=== PATIENT | female | born 1940 | race Caucasian/White ===

== ENCOUNTER 2023-05-22 16:51 | Inpatient (IN) | payer MEDICARE, OTHER ==
[~2023-05-22] VITALS: Ht 172.7 cm; Wt 61.2 kg
[2023-05-22 17:24] LABS: BASOPHILS % (AUTO) 0.1 % (0.0-2.0); EOSINOPHILS % (AUTO) 0.1 % (0.0-6.0); HEMATOCRIT 39 % (33-45); HEMOGLOBIN 12.5 g/dL (11.5-14.8); LYMPHOCYTES # (AUTO) 0.6 K/uL (0.8-4.8); LYMPHOCYTES % (AUTO) 2.7 % (20.0-44.0); MEAN CORPUSCULAR HEMOGLOBIN 30 PG (26.0-33.0); MEAN CORPUSCULAR HGB CONC 32 g/dl (31.0-36.0); MEAN CORPUSCULAR VOLUME 93 fL (82-100); MONOCYTES # (AUTO) 2.2 K/uL (0.1-1.30); MONOCYTES % (AUTO) 9.6 % (2.0-12.0); NEUTROPHILS # (AUTO) 19.9 K/uL (1.8-8.9); NEUTROPHILS % (AUTO) 87.5 % (43.0-81.0); PLATELET COUNT (AUTO) 279 K/uL (150-450); RED BLOOD CELL COUNT(AUTO) 4.18 MIL/uL (4.0-5.2); RED CELL DISTRIBUTION WIDTH 14.8 % (11.5-15.0); WHITE BLOOD COUNT (AUTO) 22.8 K/uL (4.3-11.0)
[2023-05-22 17:25] LABS: ABG BASE EXCESS -3.1 mmol/L; ABG OXYGEN SATURATION 94.3 % (92.0-98.5); ABG PCO2 37.7 mmHg (35.0-45.0); ABG PH 7.377 (7.350-7.450); ABG PO2 75.5 mmHg (75.0-100.0); ABG TOTAL HEMOGLOBIN 13.5 G/dL (12.0-16.0); COHb 0.2 % (0.5-1.5); MetHb 0.4 % (0.0-1.5); O2Hb 93.7 % (94.0-97.0); SITE, ABG Right Radial; VENT MODE, BG 2 LPM NC
[2023-05-22] MEDS: AZITHROMYCIN 500 MG in IV D5W 250 ML IV ONE (17:30)
[2023-05-22 17:36] LABS: CALCIUM, SERUM 9.5 mg/dL (8.5-10.1); CARBON DIOXIDE 27 mmol/L (21-32); CHLORIDE 100 mmol/L (98-107); CREATININE 1.2 mg/dL (0.6-1.3); GLUCOSE 163 mg/dL (74-106); POTASSIUM 3.5 mmol/L (3.5-5.1); SODIUM SERUM 136 mmol/L (136-145); UREA NITROGEN, BLOOD 20 mg/dL (7-18)
[2023-05-22] MEDS ORDERED: BISA10SU11 RC (17:39)
[2023-05-22] MEDS ORDERED: MAGN400O6 PO (17:39)
[2023-05-22] MEDS ORDERED: CRAN425C6 PO (17:39)
[2023-05-22] MEDS ORDERED: ASCO500T21 PO (17:39)
[2023-05-22] MEDS ORDERED: AMIN30LI2 PO (17:39)
[2023-05-22] MEDS ORDERED: MULT-225 PO (17:39)
[2023-05-22] MEDS ORDERED: ZINC1CAP2 PO (17:39)
[2023-05-22] MEDS ORDERED: DOCU100T2 PO (17:39)
[2023-05-22] MEDS ORDERED: ACET-868 PO (17:39)
[2023-05-22] MEDS ORDERED: LACT10SO29 PO (17:39)
[2023-05-22] MEDS ORDERED: ATOR40TA PO (17:39)
[2023-05-22] MEDS ORDERED: NA P133E RC (17:39)
[2023-05-22] MEDS ORDERED: OMEP20CA15 PO (17:39)
[2023-05-22 17:47] LABS: ALANINE AMINOTRANSFERASE 16 U/L (12-78); ALBUMIN 3.1 g/dL (3.4-5.0); ALKALINE PHOSPHATASE 124 U/L (46-116); ASPARTATE AMINOTRANSFERASE 21 U/L (15-37); BILIRUBIN,DIRECT 0.2 mg/dL (0.0-0.2); BILIRUBIN,TOTAL 0.7 mg/dL (0.2-1.0); NT-PRO BNP 644 pg/mL (0-125); TOTAL PROTEIN, SERUM 8.5 g/dL (6.4-8.2)
[2023-05-22 18:12] LABS: BAND % (MANUAL) 4 % (0.0-5.0); LYMPHOCYTES % (MANUAL) 2 % (16-48); MONOCYTES % (MANUAL) 6 % (0-11.0); NEUTROPHILS % (MANUAL) 88 (42-76); PLATELET ESTIMATE ADEQUATE
[2023-05-22] MEDS: PIPERACILLIN /TAZOBACTAM 3.375 G in IV D5W 50 ML IV ONE (18:19)
[2023-05-22] MEDS ORDERED: Z GUARD REMEDY 4 OZ OINT TP PRN (18:30)
[2023-05-22] MEDS ORDERED: ONDANSETRON HCL/PF 4 MG/2 ML VIAL IVP PRN (18:30)
[2023-05-22] MEDS ORDERED: MAGNESIUM HYDROXIDE 30 ML UDC PO PRN (18:30)
[2023-05-22] MEDS ORDERED: ACETAMINOPHEN 325 MG TABLET PO PRN (18:30)
[2023-05-22] MEDS ORDERED: MAG HYDROX/AL HYDROX/SIMETH 30 ML UDC PO PRN (18:30)
[2023-05-22] MEDS ORDERED: hydrALAZINE HCL IV 20 MG VIAL ONE (19:57)
[2023-05-22] MEDS ORDERED: ASPIRIN 325 MG TABLET ONE (19:57)
[2023-05-22] MEDS: ASPIRIN 325 MG TABLET PO ONE (20:19)
[2023-05-22] MEDS: hydrALAZINE HCL IV 20 MG VIAL IV PRN (20:26)
[2023-05-22] MEDS ORDERED: ASPIRIN 300 MG/SUPP.RECT RC ONE (21:07)
[2023-05-22] MEDS: VANCOMYCIN 1 GM in IV D5W 250 ML IV ONE (21:15)
[2023-05-22] MEDS: ASPIRIN 300 MG/SUPP.RECT RC PRN (21:17)
[2023-05-22] MEDS: IV NS 0.9% 1,000 ML IV PRN (22:45)
[2023-05-22] MEDS: ENOXAPARIN SODIUM 40 MG/0.4 ML DISP.SYRIN SQ SCH (22:47)
[2023-05-22] MEDS ORDERED: CEFEPIME 1 GM VIAL ONE (22:56)
[2023-05-22] MEDS: CEFEPIME 1 GM in IV D5W 50 ML IV SCH (23:13)
[2023-05-23 06:52] LABS: BASOPHILS # (AUTO) 0.1 K/uL (0.0-0.2); BASOPHILS % (AUTO) 0.2 % (0.0-2.0); EOSINOPHILS % (AUTO) 0.2 % (0.0-6.0); HEMATOCRIT 37 % (33-45); HEMOGLOBIN 11.9 g/dL (11.5-14.8); LYMPHOCYTES % (AUTO) 7.5 % (20.0-44.0); MEAN CORPUSCULAR HEMOGLOBIN 31 PG (26.0-33.0); MEAN CORPUSCULAR HGB CONC 33 g/dl (31.0-36.0); MEAN CORPUSCULAR VOLUME 94 fL (82-100); MONOCYTES # (AUTO) 2.2 K/uL (0.1-1.30); MONOCYTES % (AUTO) 8.4 % (2.0-12.0); NEUTROPHILS # (AUTO) 22.3 K/uL (1.8-8.9); NEUTROPHILS % (AUTO) 83.7 % (43.0-81.0); PLATELET COUNT (AUTO) 244 K/uL (150-450); RED CELL DISTRIBUTION WIDTH 14.6 % (11.5-15.0); WHITE BLOOD COUNT (AUTO) 26.6 K/uL (4.3-11.0)
[2023-05-23 07:20] LABS: CALCIUM, SERUM 9.3 mg/dL (8.5-10.1); POTASSIUM 3.5 mmol/L (3.5-5.1)
[2023-05-23 07:31] LABS: CREATININE 1.3 mg/dL (0.6-1.3); PHOSPHORUS 2.8 mg/dL (2.5-4.9)
[2023-05-23 08:00] VITALS: BP 119/84; TEMP 96.3; O2SAT 99
[2023-05-23] MEDS: ASPIRIN 81 MG TAB.CHEW PO SCH (08:23)
[2023-05-23] MEDS ORDERED: BISACODYL SUPP (10 MG) 10 MG/SUPP.RECT SUPP.RECT RC PRN (11:30)
[2023-05-23] MEDS ORDERED: NA PHOS,M-B/NA PHOS,DI-BA 1 EA ENEMA RC PRN (11:30)
[2023-05-23 12:00] VITALS: BP 105/78; TEMP 97.1; O2SAT 96
[2023-05-23 16:00] VITALS: BP 112/65; TEMP 97.3; O2SAT 96
[2023-05-23 20:00] VITALS: BP 124/53; TEMP 99; O2SAT 96
[2023-05-23] MEDS: VANCOMYCIN 1 GM in IV D5W 250ml IV SCH (20:23)
[2023-05-24] VITALS: BP 142/62; TEMP 97.7; O2SAT 96
[2023-05-24 04:00] VITALS: BP 148/62; TEMP 98.2; O2SAT 95
[2023-05-24 08:00] VITALS: BP 139/6; TEMP 97.7; O2SAT 99
[2023-05-24] MEDS: DOCUSATE SODIUM 100 MG CAPSULE PO SCH (08:03)
[2023-05-24] MEDS: PANTOPRAZOLE 40 MG TABLET.DR PO SCH (08:03)
[2023-05-24 14:17] LABS: CALCIUM, SERUM 8.9 mg/dL (8.5-10.1)
[2023-05-24 14:22] LABS: POTASSIUM 2.8 mmol/L (3.5-5.1)
[2023-05-24 16:00] VITALS: BP 150/72; TEMP 97.3; O2SAT 98
[2023-05-24] MEDS: POTASSIUM CHLORIDE 20 MEQ POWDER PACKET PO ONE (16:49)
[2023-05-24 17:14] LABS: APPEARANCE,URINE CLEAR (CLEAR); BILIRUBIN,URINE NEGATIVE (NEGATIVE); BLOOD, URINE 2+ Ery/uL (NEGATIVE); COLOR,URINE YELLOW (YELLOW); KETONES,URINE NEGATIVE (NEGATIVE); LEUKOCYTE ESTERASE ,URINE 1+ (NEGATIVE); NITRITE, URINE NEGATIVE (NEGATIVE); PROTEIN,URINE 1+ mg/dl (NEGATIVE); UGLUCOSE NEGATIVE (NEGATIVE); UROBILINOGEN,URINE 0.2 EU/dL (0.2)
[2023-05-24 17:41] LABS: ADD URINE CULTURE YES; BACTERIA,URINE 1+ /HPF (None Seen); RBC,URINE 21-50 /HPF (0-2); SQUAMOUS EPITHELIAL CELL,UR 0-2 /HPF (None Seen)
[2023-05-24 17:45] LABS: EOSINOPHIL,URINE RARE
[2023-05-24 17:54] LABS: CREATININE, URINE 37.8 MG/DL (30.0-125.0); URINE TOTAL PROTEIN 79.4 mg/dL (0-11.9)
[2023-05-24 20:00] VITALS: BP 134/102; TEMP 97.6; O2SAT 98
[2023-05-24] MEDS: MUPIROCIN OINT 2% 22 GM TUBE NS SCH (20:13)
[2023-05-25 05:28] VITALS: BP 151/89; TEMP 97.6; O2SAT 98
[2023-05-25 08:00] VITALS: BP 149/94
[2023-05-25] MEDS ORDERED: POTASSIUM CHLORIDE 20 MEQ POWDER PACKET PO ONE (09:00)
[2023-05-25 09:18] LABS: BASOPHILS # (AUTO) 0.1 K/uL (0.0-0.2); BASOPHILS % (AUTO) 0.6 % (0.0-2.0); EOSINOPHILS # (AUTO) 0.4 K/uL (0.0-0.7); EOSINOPHILS % (AUTO) 4.4 % (0.0-6.0); HEMATOCRIT 36 % (33-45); HEMOGLOBIN 12.2 g/dL (11.5-14.8); LYMPHOCYTES # (AUTO) 1.7 K/uL (0.8-4.8); LYMPHOCYTES % (AUTO) 18.2 % (20.0-44.0); MEAN CORPUSCULAR HEMOGLOBIN 31 PG (26.0-33.0); MEAN CORPUSCULAR HGB CONC 34 g/dl (31.0-36.0); MEAN CORPUSCULAR VOLUME 92 fL (82-100); MONOCYTES # (AUTO) 0.6 K/uL (0.1-1.30); MONOCYTES % (AUTO) 6.6 % (2.0-12.0); NEUTROPHILS # (AUTO) 6.6 K/uL (1.8-8.9); NEUTROPHILS % (AUTO) 70.2 % (43.0-81.0); PLATELET COUNT (AUTO) 267 K/uL (150-450); RED BLOOD CELL COUNT(AUTO) 3.94 MIL/uL (4.0-5.2); RED CELL DISTRIBUTION WIDTH 14.5 % (11.5-15.0); WHITE BLOOD COUNT (AUTO) 9.4 K/uL (4.3-11.0)
[2023-05-25 09:33] LABS: CALCIUM, SERUM 9.1 mg/dL (8.5-10.1); CARBON DIOXIDE 25 mmol/L (21-32); CHLORIDE 104 mmol/L (98-107); GLUCOSE 89 mg/dL (74-106); PHOSPHORUS 1.9 mg/dL (2.5-4.9); POTASSIUM 3.7 mmol/L (3.5-5.1); SODIUM SERUM 136 mmol/L (136-145); UREA NITROGEN, BLOOD 9 mg/dL (7-18)
[2023-05-25 16:00] VITALS: BP 160/62; TEMP 97.4; O2SAT 97
[2023-05-25] MEDS: K PHOS NEUTRAL 250 MG TABLET PO ONE (16:20)
[2023-05-25 20:00] VITALS: BP 97/72; TEMP 97.6; O2SAT 97
[2023-05-25 20:10] LABS: CALCIUM, SERUM 9.1 mg/dL (8.5-10.1); CARBON DIOXIDE 26 mmol/L (21-32); CHLORIDE 103 mmol/L (98-107); CREATININE 0.9 mg/dL (0.6-1.3); GLUCOSE 104 mg/dL (74-106); POTASSIUM 3.6 mmol/L (3.5-5.1); SODIUM SERUM 136 mmol/L (136-145); UREA NITROGEN, BLOOD 11 mg/dL (7-18)
[2023-05-26 04:00] VITALS: BP 150/86; TEMP 98; O2SAT 95
[2023-05-26 06:58] LABS: BASOPHILS # (AUTO) 0.1 K/uL (0.0-0.2); BASOPHILS % (AUTO) 0.6 % (0.0-2.0); EOSINOPHILS # (AUTO) 0.3 K/uL (0.0-0.7); EOSINOPHILS % (AUTO) 3.7 % (0.0-6.0); HEMATOCRIT 40 % (33-45); HEMOGLOBIN 12.8 g/dL (11.5-14.8); LYMPHOCYTES # (AUTO) 1.9 K/uL (0.8-4.8); LYMPHOCYTES % (AUTO) 24.1 % (20.0-44.0); MEAN CORPUSCULAR HEMOGLOBIN 31 PG (26.0-33.0); MEAN CORPUSCULAR HGB CONC 32 g/dl (31.0-36.0); MEAN CORPUSCULAR VOLUME 96 fL (82-100); MONOCYTES # (AUTO) 0.7 K/uL (0.1-1.30); NEUTROPHILS % (AUTO) 62.6 % (43.0-81.0); PLATELET COUNT (AUTO) 219 K/uL (150-450); RED BLOOD CELL COUNT(AUTO) 4.13 MIL/uL (4.0-5.2); RED CELL DISTRIBUTION WIDTH 15.2 % (11.5-15.0); WHITE BLOOD COUNT (AUTO) 7.9 K/uL (4.3-11.0)
[2023-05-26 08:00] VITALS: BP 142/86; TEMP 97.2; O2SAT 100
[2023-05-26] MEDS ORDERED: LEVO500T90 PO (09:56)
[2023-05-26] MEDS ORDERED: K PHOS NEUTRAL 250 MG TABLET PO ONE (15:30)
== END 2023-05-26 16:08 | DRG 177 ==
LOC: ER 16:58 → TELE1 19:45 → MEDSG1 05-24 09:42
PROVIDERS: ADMIT Internal Medicine; ATTEND Internal Medicine
DX: J15.69 Pneumonia due to other Gram-negative bacteria (principal); G92.8 Other toxic encephalopathy; G93.41 Metabolic encephalopathy; I21.A1 Myocardial infarction type 2; J44.0 Chronic obstructive pulmonary disease with (acute) lower respiratory infection; K86.1 Other chronic pancreatitis; N17.9 Acute kidney failure, unspecified; J44.1 Chronic obstructive pulmonary disease with (acute) exacerbation; R78.81 Bacteremia; Z20.822 Contact with and (suspected) exposure to COVID-19; E78.5 Hyperlipidemia, unspecified; F09 Unspecified mental disorder due to known physiological condition; Z66 Do not resuscitate; Z86.19 Personal history of other infectious and parasitic diseases; Z87.440 Personal history of urinary (tract) infections; Z88.5 Allergy status to narcotic agent; Z91.018 Allergy to other foods; Z79.899 Other long term (current) drug therapy; M89.8X9 Other specified disorders of bone, unspecified site; Y95 Nosocomial condition; N18.9 Chronic kidney disease, unspecified; I12.9 Hypertensive chronic kidney disease with stage 1 through stage 4 chronic kidney disease, or unspecified chronic kidney disease; E86.0 Dehydration; F03.90 Unspecified dementia, unspecified severity, without behavioral disturbance, psychotic disturbance, mood disturbance, and anxiety; E87.6 Hypokalemia; B96.89 Other specified bacterial agents as the cause of diseases classified elsewhere
CPT/HCPCS: 36415; 36600; 71045-TC; 76770-TC; 80048-TC; 80076-TC; 80202-TC; 81001; 82570-TC; 82803-TC; 82962-TC; 83690-TC; 83735-TC; 83880; 84100-TC; 84300-TC; 84484-TC; 85025-TC; 87081-TC; 87086-TC; 93307-TC; 94799-TC; A4223; G0378; J0360; J0456; J0692; J1650; J2543; J3370; J3490; J7030; J7050; J7060

== ENCOUNTER 2023-05-28 11:13 | Inpatient (IN) | payer MEDICARE, OTHER ==
[~2023-05-28] VITALS: Ht 172.7 cm; Wt 79.8 kg
[~2023-05-28 11:13] MED LIST: ACET-868 PO; AMIN30LI2 PO; ASCO500T21 PO; ATOR40TA PO; BISA10SU11 RC; CRAN425C6 PO; DOCU100T2 PO; LACT10SO29 PO; LEVO500T90 PO; MAGN400O6 PO; MULT-225 PO; NA P133E RC; OMEP20CA15 PO; ZINC1CAP2 PO
[2023-05-28] MEDS ORDERED: LEVO500T90 PO (12:04)
[2023-05-28] MEDS ORDERED: ALLA266C2 TP (12:04)
[2023-05-28] MEDS ORDERED: PANT40TA49 PO (12:04)
[2023-05-28] MEDS ORDERED: GEL100GE TP (12:04)
[2023-05-28] MEDS ORDERED: ACET-868 PO (12:04)
[2023-05-28 12:19] LABS: BASOPHILS % (AUTO) 0.3 % (0.0-2.0); EOSINOPHILS # (AUTO) 0.3 K/uL (0.0-0.7); EOSINOPHILS % (AUTO) 2.6 % (0.0-6.0); HEMATOCRIT 36 % (33-45); HEMOGLOBIN 11.6 g/dL (11.5-14.8); LYMPHOCYTES # (AUTO) 2.3 K/uL (0.8-4.8); LYMPHOCYTES % (AUTO) 20.8 % (20.0-44.0); MEAN CORPUSCULAR HEMOGLOBIN 30 PG (26.0-33.0); MEAN CORPUSCULAR HGB CONC 33 g/dl (31.0-36.0); MEAN CORPUSCULAR VOLUME 93 fL (82-100); MONOCYTES # (AUTO) 1.3 K/uL (0.1-1.30); MONOCYTES % (AUTO) 11.1 % (2.0-12.0); NEUTROPHILS # (AUTO) 7.4 K/uL (1.8-8.9); NEUTROPHILS % (AUTO) 65.2 % (43.0-81.0); PLATELET COUNT (AUTO) 257 K/uL (150-450); RED BLOOD CELL COUNT(AUTO) 3.83 MIL/uL (4.0-5.2); RED CELL DISTRIBUTION WIDTH 14.7 % (11.5-15.0); WHITE BLOOD COUNT (AUTO) 11.3 K/uL (4.3-11.0)
[2023-05-28 12:30] LABS: INR 1.05 (0.91-1.10); PARTIAL THROMBOPLASTIN TIME 30.2 SEC (24.3-34.3); PROTHROMBIN TIME 11.1 SECS (9.2-11.1)
[2023-05-28 12:38] LABS: CALCIUM, SERUM 9.2 mg/dL (8.5-10.1); CARBON DIOXIDE 27 mmol/L (21-32); CHLORIDE 103 mmol/L (98-107); CREATININE 1.1 mg/dL (0.6-1.3); GLUCOSE 92 mg/dL (74-106); POTASSIUM 4.1 mmol/L (3.5-5.1); SODIUM SERUM 135 mmol/L (136-145); UREA NITROGEN, BLOOD 18 mg/dL (7-18)
[2023-05-28 12:44] LABS: ALANINE AMINOTRANSFERASE 12 U/L (12-78); ALBUMIN 1.6 g/dL (3.4-5.0); ALKALINE PHOSPHATASE 90 U/L (46-116); ASPARTATE AMINOTRANSFERASE 21 U/L (15-37); BILIRUBIN,DIRECT 0.1 mg/dL (0.0-0.2); BILIRUBIN,TOTAL 0.4 mg/dL (0.2-1.0); TOTAL PROTEIN, SERUM 7.4 g/dL (6.4-8.2)
[2023-05-28 12:48] LABS: LACTIC ACID 0.6 mmol/L (0.4-2.0)
[2023-05-28 13:04] LABS: APPEARANCE,URINE SLIGHTLY CLOUDY (CLEAR); BILIRUBIN,URINE NEGATIVE (NEGATIVE); BLOOD, URINE 3+ Ery/uL (NEGATIVE); COLOR,URINE YELLOW (YELLOW); KETONES,URINE NEGATIVE (NEGATIVE); LEUKOCYTE ESTERASE ,URINE TRACE (NEGATIVE); NITRITE, URINE NEGATIVE (NEGATIVE); PROTEIN,URINE 1+ mg/dl (NEGATIVE); UGLUCOSE NEGATIVE (NEGATIVE); UROBILINOGEN,URINE 0.2 EU/dL (0.2)
[2023-05-28 13:24] VITALS: O2SAT 71
[2023-05-28 13:34] LABS: ADD URINE CULTURE YES; BACTERIA,URINE Rare /HPF (None Seen); CALCIUM OXALATE CRYSTALS,UR Moderate /HPF (None Seen); COARSE GRANULAR CASTS,URINE Few /LPF (None Seen); RBC,URINE 51-80 /HPF (0-2); SQUAMOUS EPITHELIAL CELL,UR Moderate /HPF (None Seen)
[2023-05-28] MEDS ORDERED: ZOLPIDEM TARTRATE 5 MG TABLET PO PRN (16:00)
[2023-05-28] MEDS ORDERED: Z GUARD REMEDY 4 OZ OINT TP PRN (16:00)
[2023-05-28] MEDS ORDERED: ACETAMINOPHEN 325 MG TABLET PO PRN ×2 (16:00→16:30)
[2023-05-28] MEDS ORDERED: ONDANSETRON HCL/PF 4 MG/2 ML VIAL IVP PRN (16:00)
[2023-05-28] MEDS ORDERED: MAG HYDROX/AL HYDROX/SIMETH 30 ML UDC PO PRN (16:00)
[2023-05-28] MEDS ORDERED: MAGNESIUM HYDROXIDE 30 ML UDC PO PRN ×2 (16:00→16:30)
[2023-05-28] MEDS ORDERED: LACTULOSE 10 G/15 ML UDC (PYXIS) PO PRN (16:30)
[2023-05-28] MEDS ORDERED: BISACODYL SUPP (10 MG) 10 MG/SUPP.RECT SUPP.RECT RC PRN (16:30)
[2023-05-28] MEDS ORDERED: NA PHOS,M-B/NA PHOS,DI-BA 1 EA ENEMA RC PRN (16:30)
[2023-05-28 17:12] VITALS: BP 101/59; TEMP 98
[2023-05-28] MEDS ORDERED: ZINC SULFATE 220 MG CAPSULE PO SCH (18:00)
[2023-05-28] MEDS ORDERED: ASCORBIC ACID 500 MG TABLET PO SCH (18:00)
[2023-05-28] MEDS ORDERED: PROSTAT (PYXIS) 30 ML UDC PO SCH (18:00)
[2023-05-28] MEDS ORDERED: MULTIVITAMINS,THERAGRAN 1 UDTAB TABLET PO SCH (18:00)
[2023-05-28] MEDS ORDERED: ATORVASTATIN 40 MG TABLET PO SCH (22:00)
[2023-05-29 07:36] LABS: BASOPHILS # (AUTO) 0.1 K/uL (0.0-0.2); BASOPHILS % (AUTO) 0.7 % (0.0-2.0); EOSINOPHILS # (AUTO) 0.4 K/uL (0.0-0.7); EOSINOPHILS % (AUTO) 3.2 % (0.0-6.0); HEMATOCRIT 31 % (33-45); HEMOGLOBIN 10.3 g/dL (11.5-14.8); LYMPHOCYTES # (AUTO) 2.7 K/uL (0.8-4.8); LYMPHOCYTES % (AUTO) 22.5 % (20.0-44.0); MEAN CORPUSCULAR HEMOGLOBIN 31 PG (26.0-33.0); MEAN CORPUSCULAR HGB CONC 33 g/dl (31.0-36.0); MEAN CORPUSCULAR VOLUME 92 fL (82-100); MONOCYTES # (AUTO) 1.2 K/uL (0.1-1.30); MONOCYTES % (AUTO) 9.8 % (2.0-12.0); NEUTROPHILS # (AUTO) 7.8 K/uL (1.8-8.9); NEUTROPHILS % (AUTO) 63.8 % (43.0-81.0); PLATELET COUNT (AUTO) 247 K/uL (150-450); RED BLOOD CELL COUNT(AUTO) 3.36 MIL/uL (4.0-5.2); RED CELL DISTRIBUTION WIDTH 14.4 % (11.5-15.0); WHITE BLOOD COUNT (AUTO) 12.1 K/uL (4.3-11.0)
[2023-05-29 08:00] VITALS: BP 130/76; TEMP 97.9; O2SAT 96
[2023-05-29 08:17] LABS: CALCIUM, SERUM 9.3 mg/dL (8.5-10.1); CREATININE 0.9 mg/dL (0.6-1.3); MAGNESIUM 2.2 mg/dL (1.8-2.4); PHOSPHORUS 2.7 mg/dL (2.5-4.9); POTASSIUM 3.7 mmol/L (3.5-5.1)
[2023-05-29 08:31] LABS: THYROID STIMULATING HORMONE 75.346 uIU/mL (0.358-3.74)
[2023-05-29] MEDS ORDERED: LEVOFLOXACIN (250MG) 250 MG TABLET PO SCH (09:00)
[2023-05-29] MEDS ORDERED: ACETAMINOPHEN 325 MG TABLET PO SCH (09:00)
[2023-05-29] MEDS ORDERED: PANTOPRAZOLE 40 MG VIAL IV SCH (09:00)
[2023-05-29] MEDS ORDERED: Medication Not On Formulary EA (Cranberry Extract (Cranberry) 425 MG) PO SCH (09:00)
[2023-05-29] MEDS ORDERED: DOCUSATE SODIUM 100 MG CAPSULE PO SCH (09:00)
[2023-05-29] MEDS ORDERED: Z GUARD REMEDY 4 OZ OINT TP SCH (09:00)
[2023-05-29] MEDS ORDERED: PANT40TA49 PO (09:21)
[2023-05-29] MEDS ORDERED: LEVO50TA8 PO (09:24)
[2023-05-29] MEDS ORDERED: NITR100C6 PO (09:26)
[2023-05-29] MEDS ORDERED: LEVOTHYROXINE SODIUM 50 MCG TABLET PO SCH (09:30)
== END 2023-05-29 13:50 | DRG 204 ==
LOC: ER 11:16 → MED 13:21 → TELE 23:42
PROVIDERS: ADMIT Student in an Organized Health Care Education/Training Program; ATTEND Internal Medicine
DX: R04.2 Hemoptysis (principal); I21.A1 Myocardial infarction type 2; E43 Unspecified severe protein-calorie malnutrition; E87.1 Hypo-osmolality and hyponatremia; G93.49 Other encephalopathy; N39.0 Urinary tract infection, site not specified; E03.9 Hypothyroidism, unspecified; E78.5 Hyperlipidemia, unspecified; J44.9 Chronic obstructive pulmonary disease, unspecified; Z68.26 Body mass index [BMI] 26.0-26.9, adult; L89.156 Pressure-induced deep tissue damage of sacral region; F09 Unspecified mental disorder due to known physiological condition; Z87.01 Personal history of pneumonia (recurrent)
CPT/HCPCS: 36415; 71045-TC; 80048-TC; 80076-TC; 81001; 83605-TC; 83735-TC; 84100-TC; 84439-TC; 84443-TC; 84481; 84484-TC; 85025-TC; 85730-TC; 86850-TC; 87040-TC; 87081-TC; 87086-TC; C9113; G0378

== ENCOUNTER 2025-02-04 16:03 | Inpatient (IN) | payer MEDICARE, OTHER ==
[~2025-02-04] VITALS: Ht 172.7 cm; Wt 49.4 kg
[~2025-02-04 16:03] MED LIST changes: +ALLA266C2 TP; +CLOB15CR4 TP; +COLL30OI TP; +GEL100GE TP; +IVER3TAB2 PO; +LEVO50TA8 PO; +NITR100C6 PO; -OMEP20CA15 PO; +PANT40TA49 PO; +PERM60CR4 TP
[2025-02-04 17:09] LABS: PLATELET COUNT (AUTO) 123 K/uL (150-450); RED BLOOD CELL COUNT(AUTO) 4.38 MIL/uL (4.0-5.2); RED CELL DISTRIBUTION WIDTH 17.5 % (11.5-15.0); WHITE BLOOD COUNT (AUTO) 11.5 K/uL (4.3-11.0)
[2025-02-04 17:58] LABS: ASPARTATE AMINOTRANSFERASE 14.0 U/L (15-37); CALCIUM, SERUM 9.0 mg/dL (8.5-10.1); CREATININE 1.8 mg/dL (0.6-1.3); TOTAL PROTEIN, SERUM 7.4 g/dL (6.4-8.2); UREA NITROGEN, BLOOD 74.0 mg/dL (7-18)
[2025-02-04 18:01] LABS: SODIUM SERUM 180.0 mmol/L (136-145)
[2025-02-04] MEDS ORDERED: PANT40SU2 PO (18:01)
[2025-02-04] MEDS ORDERED: LEVO125T8 PO (18:01)
[2025-02-04] MEDS: IV NS 0.9% 1,000 ML BAG IV ONE (19:34)
[2025-02-04 20:40] VITALS: BP 148/64; TEMP 97.7; O2SAT 95
[2025-02-04] MEDS ORDERED: ACETAMINOPHEN 325 MG TABLET PO PRN (21:00)
[2025-02-04] MEDS ORDERED: LACTULOSE 10 G/15 ML UDC (PYXIS) PO PRN (21:00)
[2025-02-04] MEDS ORDERED: ONDANSETRON HCL/PF 4 MG/2 ML VIAL IVP PRN (21:00)
[2025-02-04] MEDS: ATORVASTATIN 40 MG TABLET PO SCH (22:09)
[2025-02-04] MEDS: IV NS 0.9% 1,000 ML IV PRN (22:10)
[2025-02-05] VITALS: BP 112/73; TEMP 97.3; O2SAT 98
[2025-02-05 00:13] LABS: CALCIUM, SERUM 9.1 mg/dL (8.5-10.1); CREATININE 1.6 mg/dL (0.6-1.3); UREA NITROGEN, BLOOD 75.0 mg/dL (7-18)
[2025-02-05 00:18] LABS: SODIUM SERUM 179.0 mmol/L (136-145)
[2025-02-05 04:00] VITALS: BP 136/71; TEMP 98; O2SAT 99
[2025-02-05] MEDS: IV D5W 500 ML IV PRN (07:09)
[2025-02-05 07:23] LABS: APPEARANCE,URINE SLIGHTLY CLOUDY (CLEAR); BLOOD, URINE TRACE-INTA Ery/uL (NEGATIVE); LEUKOCYTE ESTERASE ,URINE 3+ (NEGATIVE); NITRITE, URINE NEGATIVE (NEGATIVE); UGLUCOSE NEGATIVE (NEGATIVE)
[2025-02-05 07:58] LABS: ADD URINE CULTURE YES; SQUAMOUS EPITHELIAL CELL,UR Few /HPF (None Seen); TRIPLE PHOSPHATE CRYSTAL,UR Few /HPF (None Seen)
[2025-02-05 08:00] VITALS: BP 156/67; TEMP 97.5; O2SAT 99
[2025-02-05] MEDS: LEVOTHYROXINE SODIUM 125 MCG TABLET PO SCH (08:11)
[2025-02-05] MEDS: MULTIVITAMINS,THERAGRAN 1 UDTAB TABLET PO SCH (08:11)
[2025-02-05] MEDS: PANTOPRAZOLE 40 MG TABLET.DR PO SCH (08:11)
[2025-02-05] MEDS: PROSOURCE / PROSTAT (PYXIS) 30 ML UDC PO SCH (08:12)
[2025-02-05 10:03] LABS: CALCIUM, SERUM 8.7 mg/dL (8.5-10.1); CREATININE 1.7 mg/dL (0.6-1.3); PHOSPHORUS 3.7 mg/dL (2.5-4.9); UREA NITROGEN, BLOOD 74.0 mg/dL (7-18)
[2025-02-05 10:09] LABS: SODIUM SERUM 171.0 mmol/L (136-145)
[2025-02-05 11:44] LABS: PLATELET COUNT (AUTO) 107 K/uL (150-450); RED BLOOD CELL COUNT(AUTO) 4.11 MIL/uL (4.0-5.2); RED CELL DISTRIBUTION WIDTH 18.0 % (11.5-15.0); WHITE BLOOD COUNT (AUTO) 9.2 K/uL (4.3-11.0)
[2025-02-05 11:53] LABS: CALCIUM, SERUM 8.6 mg/dL (8.5-10.1); CREATININE 1.8 mg/dL (0.6-1.3); UREA NITROGEN, BLOOD 73.0 mg/dL (7-18)
[2025-02-05] MEDS: THERAHONEY GEL 1.5 OZ TUBE TP SCH (11:58)
[2025-02-05 12:00] VITALS: BP 150/77; TEMP 97.6; O2SAT 99
[2025-02-05 12:28] LABS: SODIUM SERUM 177.0 mmol/L (136-145)
[2025-02-05] MEDS: CEFTRIAXONE 1 G in IV D5W 50 ML IV SCH (12:38)
[2025-02-05 16:00] VITALS: BP 147/69; TEMP 97.7; O2SAT 93
[2025-02-05] MEDS: PROSOURCE / PROSTAT (PYXIS) 30 ML UDC NG SCH (17:13)
[2025-02-05 17:51] LABS: CALCIUM, SERUM 8.6 mg/dL (8.5-10.1); CREATININE 1.6 mg/dL (0.6-1.3); UREA NITROGEN, BLOOD 69.0 mg/dL (7-18)
[2025-02-05 17:57] LABS: SODIUM SERUM 171.0 mmol/L (136-145)
[2025-02-05 19:49] LABS: CREATININE, URINE 137.2 MG/DL (30.0-125.0); URINE SODIUM, RANDOM 125.0 mmol/l (40-220); URINE TOTAL PROTEIN 219.3 mg/dL (0-11.9)
[2025-02-05 20:00] VITALS: BP 100/83; TEMP 97.3; O2SAT 99
[2025-02-05] MEDS: IV D5W 1,000 ML IV PRN (22:47)
[2025-02-05 23:22] LABS: OSMOLALITY,URINE 1086.0 mOS/kg (340-1090)
[2025-02-06] VITALS: BP 135/67; TEMP 97.6; O2SAT 98
[2025-02-06 04:00] VITALS: BP 129/66; TEMP 97.5; O2SAT 98
[2025-02-06 07:52] LABS: PLATELET COUNT (AUTO) 76 K/uL (150-450); RED BLOOD CELL COUNT(AUTO) 4.24 MIL/uL (4.0-5.2); RED CELL DISTRIBUTION WIDTH 17.5 % (11.5-15.0); WHITE BLOOD COUNT (AUTO) 11.7 K/uL (4.3-11.0)
[2025-02-06 08:00] VITALS: BP 150/71; TEMP 97.2; O2SAT 100
[2025-02-06 08:25] LABS: ASPARTATE AMINOTRANSFERASE 17.0 U/L (15-37); CALCIUM, SERUM 8.1 mg/dL (8.5-10.1); CREATININE 1.2 mg/dL (0.6-1.3); PHOSPHORUS 2.3 mg/dL (2.5-4.9); TOTAL PROTEIN, SERUM 6.1 g/dL (6.4-8.2); UREA NITROGEN, BLOOD 59.0 mg/dL (7-18)
[2025-02-06 08:32] LABS: CREATINE KINASE, TOTAL 66.0 U/L (26-192)
[2025-02-06 08:38] LABS: SODIUM SERUM 162.0 mmol/L (136-145)
[2025-02-06] MEDS: Z GUARD REMEDY 4 OZ OINT TP PRN (08:41)
[2025-02-06] MEDS: JEVITY 1.2 CAL 1,000 ML BOTTLE GT PRN (08:58)
[2025-02-06 09:34] LABS: EOSINOPHILS % (MANUAL) 3 % (0-4); LYMPHOCYTES % (MANUAL) 12 % (16-48); MONOCYTES % (MANUAL) 8 % (0-11.0); NEUTROPHILS % (MANUAL) 77 (42-76)
[2025-02-06 09:35] LABS: PLATELET ESTIMATE DECREASED
[2025-02-06] MEDS: IV 1/2NS 1000 ML 1,000 ML IV PRN (10:43)
[2025-02-06 12:00] VITALS: BP 131/53; TEMP 97.7; O2SAT 96
[2025-02-06 16:00] VITALS: BP 142/51; TEMP 97.5; O2SAT 94
[2025-02-06] MEDS: NEUTRA PHOS 1 POWD.PACKET GT ONE (18:15)
[2025-02-06 20:00] VITALS: BP 121/59; TEMP 97.8; O2SAT 99
[2025-02-07] VITALS: BP 150/64; TEMP 97.5; O2SAT 99
[2025-02-07 04:00] VITALS: BP 142/100; TEMP 97.5; O2SAT 98
[2025-02-07 08:00] VITALS: BP 148/69; TEMP 97.6; O2SAT 98
[2025-02-07 08:07] LABS: PTH, INTACT 33 pg/mL (15-65)
[2025-02-07 12:00] VITALS: BP 127/73; TEMP 96.9; O2SAT 98
[2025-02-07 16:00] VITALS: BP 154/50; TEMP 97.6; O2SAT 98
[2025-02-07 16:45] LABS: PLATELET COUNT (AUTO) 85 K/uL (150-450); RED BLOOD CELL COUNT(AUTO) 4.31 MIL/uL (4.0-5.2); RED CELL DISTRIBUTION WIDTH 17.2 % (11.5-15.0); WHITE BLOOD COUNT (AUTO) 11.2 K/uL (4.3-11.0)
[2025-02-07 17:06] LABS: CALCIUM, SERUM 8.1 mg/dL (8.5-10.1); CREATININE 1.0 mg/dL (0.6-1.3); PHOSPHORUS 3.0 mg/dL (2.5-4.9); SODIUM SERUM 154.0 mmol/L (136-145); UREA NITROGEN, BLOOD 40.0 mg/dL (7-18)
[2025-02-07 18:00] LABS: EOSINOPHILS % (MANUAL) 1 % (0-4); LYMPHOCYTES % (MANUAL) 24 % (16-48); MONOCYTES % (MANUAL) 6 % (0-11.0); NEUTROPHILS % (MANUAL) 69 (42-76)
[2025-02-07 18:01] LABS: PLATELET ESTIMATE DECREASED
[2025-02-07 20:00] VITALS: BP 114/66; TEMP 97.5; O2SAT 97
[2025-02-08] VITALS: BP 148/58; TEMP 97.5; O2SAT 94
[2025-02-08 04:00] VITALS: BP 149/62; TEMP 98.2; O2SAT 96
[2025-02-08 08:00] VITALS: BP 151/57; TEMP 98.6
[2025-02-08] MEDS: PERMETHRIN 5% CRM 60 GM TUBE TP SCH (09:04)
[2025-02-08 09:58] LABS: CALCIUM, SERUM 7.9 mg/dL (8.5-10.1); CREATININE 0.8 mg/dL (0.6-1.3); SODIUM SERUM 149.0 mmol/L (136-145); UREA NITROGEN, BLOOD 29.0 mg/dL (7-18)
[2025-02-08 12:00] VITALS: BP 159/60; TEMP 98.1; O2SAT 97
[2025-02-08 16:00] VITALS: BP 166/74; TEMP 97.8; O2SAT 97
[2025-02-08 20:00] VITALS: BP 173/68; TEMP 97.3; O2SAT 100
[2025-02-09] VITALS: BP 140/59; TEMP 97.2; O2SAT 100
[2025-02-09 04:00] VITALS: BP 167/53; TEMP 97.5; O2SAT 100
[2025-02-09 08:00] VITALS: BP 147/71; TEMP 98.1; O2SAT 99
[2025-02-09] MEDS: IVERMECTIN 3 MG TABLET PO SCH (08:12)
[2025-02-09 12:00] VITALS: BP 170/65; TEMP 97; O2SAT 98
[2025-02-09] MEDS: CLONIDINE HCL 0.1 MG TABLET GT PRN (12:18)
[2025-02-09 15:20] LABS: CALCIUM, SERUM 7.8 mg/dL (8.5-10.1); CREATININE 0.7 mg/dL (0.6-1.3); SODIUM SERUM 142.0 mmol/L (136-145); UREA NITROGEN, BLOOD 27.0 mg/dL (7-18)
[2025-02-09 16:00] VITALS: BP 156/56; TEMP 97.7; O2SAT 100
[2025-02-09 20:00] VITALS: BP 137/60; TEMP 97.9; O2SAT 100
[2025-02-10] VITALS (7 sets, daily range): BP systolic 113–166; BP diastolic 58–93; TEMP 97–97.9; O2SAT 98–100
[2025-02-10 07:36] LABS: PLATELET COUNT (AUTO) 67 K/uL (150-450); RED BLOOD CELL COUNT(AUTO) 3.59 MIL/uL (4.0-5.2); RED CELL DISTRIBUTION WIDTH 16.1 % (11.5-15.0); WHITE BLOOD COUNT (AUTO) 8.8 K/uL (4.3-11.0)
[2025-02-10 07:54] LABS: CALCIUM, SERUM 7.9 mg/dL (8.5-10.1); CREATININE 0.6 mg/dL (0.6-1.3); SODIUM SERUM 143.0 mmol/L (136-145); UREA NITROGEN, BLOOD 22.0 mg/dL (7-18)
[2025-02-10 11:45] LABS: BASOPHILS % (MANUAL) 0 % (0.0-2.0); EOSINOPHILS % (MANUAL) 3 % (0-4); LYMPHOCYTES % (MANUAL) 12 % (16-48); MONOCYTES % (MANUAL) 11 % (0-11.0); NEUTROPHILS % (MANUAL) 74 (42-76); PLATELET ESTIMATE DECREASED
[2025-02-11] VITALS: BP 143/58; TEMP 97.9; O2SAT 98
[2025-02-11 04:00] VITALS: BP 121/109; TEMP 97.9; O2SAT 100
[2025-02-11 07:54] LABS: PLATELET COUNT (AUTO) 91 K/uL (150-450); RED BLOOD CELL COUNT(AUTO) 3.70 MIL/uL (4.0-5.2); RED CELL DISTRIBUTION WIDTH 16.0 % (11.5-15.0); WHITE BLOOD COUNT (AUTO) 9.6 K/uL (4.3-11.0)
[2025-02-11 08:00] VITALS: BP 115/60; TEMP 98.3; O2SAT 100
[2025-02-11 08:35] LABS: CALCIUM, SERUM 9.0 mg/dL (8.5-10.1); CREATININE 0.6 mg/dL (0.6-1.3); SODIUM SERUM 141.0 mmol/L (136-145); UREA NITROGEN, BLOOD 21.0 mg/dL (7-18)
[2025-02-11 10:10] LABS: BAND % (MANUAL) 2 % (0.0-5.0); EOSINOPHILS % (MANUAL) 2 % (0-4); LYMPHOCYTES % (MANUAL) 17 % (16-48); MONOCYTES % (MANUAL) 11 % (0-11.0); NEUTROPHILS % (MANUAL) 68 (42-76)
[2025-02-11 10:11] LABS: PLATELET ESTIMATE DECREASED
[2025-02-11 12:00] VITALS: BP 119/69; TEMP 98.1; O2SAT 100
[2025-02-11 16:00] VITALS: BP 131/62; TEMP 98.1; O2SAT 100
[2025-02-11 20:00] VITALS: BP 100/65; TEMP 97.5; O2SAT 95
[2025-02-12 04:00] VITALS: BP 106/68; TEMP 97.8; O2SAT 100
[2025-02-12 07:29] LABS: PLATELET COUNT (AUTO) 143 K/uL (150-450); RED BLOOD CELL COUNT(AUTO) 3.81 MIL/uL (4.0-5.2); RED CELL DISTRIBUTION WIDTH 15.2 % (11.5-15.0); WHITE BLOOD COUNT (AUTO) 8.5 K/uL (4.3-11.0)
[2025-02-12 07:43] LABS: CALCIUM, SERUM 9.3 mg/dL (8.5-10.1); CREATININE 0.8 mg/dL (0.6-1.3); SODIUM SERUM 140.0 mmol/L (136-145); UREA NITROGEN, BLOOD 18.0 mg/dL (7-18)
[2025-02-12 08:00] VITALS: BP 100/90; TEMP 98.2; O2SAT 97
== END 2025-02-12 14:10 | DRG 640 ==
LOC: ER 16:12 → MEDSG1 20:35 → TELE1 20:47 → MEDSG1 02-10 13:00
PROVIDERS: ADMIT Nurse Practitioner Family; ATTEND Internal Medicine
PROC: 05HB33Z Insertion of Infusion Device into Right Basilic Vein, Percutaneous Approach (ICD-10-PCS; principal; 2025-02-05)
DX: E87.0 Hyperosmolality and hypernatremia (principal); G93.41 Metabolic encephalopathy; L89.153 Pressure ulcer of sacral region, stage 3; J96.01 Acute respiratory failure with hypoxia; R53.2 Functional quadriplegia; E44.0 Moderate protein-calorie malnutrition; N17.9 Acute kidney failure, unspecified; N39.0 Urinary tract infection, site not specified; E86.0 Dehydration; R62.7 Adult failure to thrive; Z66 Do not resuscitate; Z20.822 Contact with and (suspected) exposure to COVID-19; D69.6 Thrombocytopenia, unspecified; E88.09 Other disorders of plasma-protein metabolism, not elsewhere classified; J44.9 Chronic obstructive pulmonary disease, unspecified; K21.9 Gastro-esophageal reflux disease without esophagitis; E78.5 Hyperlipidemia, unspecified; E86.1 Hypovolemia; E03.9 Hypothyroidism, unspecified; R13.10 Dysphagia, unspecified; B96.4 Proteus (mirabilis) (morganii) as the cause of diseases classified elsewhere; Z91.018 Allergy to other foods; N18.9 Chronic kidney disease, unspecified; M24.561 Contracture, right knee; M24.562 Contracture, left knee; X58.XXXA Exposure to other specified factors, initial encounter; S91.114A Laceration without foreign body of right lesser toe(s) without damage to nail, initial encounter; L89.211 Pressure ulcer of right hip, stage 1; Y92.9 Unspecified place or not applicable; L89.322 Pressure ulcer of left buttock, stage 2; M89.8X9 Other specified disorders of bone, unspecified site; F03.90 Unspecified dementia, unspecified severity, without behavioral disturbance, psychotic disturbance, mood disturbance, and anxiety; D63.1 Anemia in chronic kidney disease; I48.91 Unspecified atrial fibrillation; Z88.5 Allergy status to narcotic agent; Z79.890 Hormone replacement therapy
CPT/HCPCS: 36415; 70450-TC; 71045-TC; 76770-TC; 80048-TC; 80053-TC; 80076-TC; 81001; 82550-TC; 82570-TC; 83735-TC; 83935-TC; 83970; 84100-TC; 84155; 84165; 84300-TC; 84443-TC; 84550-TC; 85025-TC; 85027-TC; 87081-TC; 87086-TC; 87186-TC; 92526; 92611; 97110-TC; 97530-TC; A4223; G0378; J0696; J3490; J7030; J7050; J7060; J7070